=== PATIENT | male | born 1985 | race Two or more races ===

== ENCOUNTER 2020-06-30 10:20 | Emergency (ER) | payer OTHER ==
[2020-06-30 10:39] VITALS: BP 140/89
[2020-06-30] MEDS ORDERED: KETOROLAC TROMETHAMINE 60 MG/2 ML SDV IM ONE (10:48)
[2020-06-30] MEDS ORDERED: METHYLPREDNISOLONE INJ 125 MG/2 ML SDV IM ONE (10:49)
[2020-06-30] MEDS ORDERED: CYCLOBENZAPRINE HCL 10 MG TABLET PO ONE (10:49)
--- NOTE | 2020-06-30 10:57 | ER Document Report ---
HPI - HPI Patient complains to provider of: back pain Time Seen by Provider: 06/30/20 10:43 Context: 34-year-old male past medical history significant for GERD presents to the emergency room with sudden onset of low back pain. Patient states [place]. States he went to get out of the whole walk across the street to bend over and scrap picker some piping when he had sudden onset of low back pain that radiated into his legs. Patient states he fell forward landing on his knees. Did not injure his back during the fall. States he was able to ambulate with assistance and was brought to the emergency room by coworkers. States he does have a history of herniated disks from L3-L5 from several years ago. Not currently taking any medications for his back. Denies any loss of control over his bowels or bladder. No saddle anesthesia. No red flags. Associated Symptoms: None Exacerbated by: Movement Relieved by: Denies Similar symptoms previously: Yes - History of previous back injury several years ago while in the . Recently seen / treated by doctor: No - ROS Systems Reviewed and Negative: Yes All other systems reviewed and negative - CONSTITUTIONAL Constitutional: DENIES: Fever - NEURO Neurology: DENIES: Weakness - GASTROINTESTINAL Gastrointestinal: DENIES: Abdominal Pain, Nausea, Patient vomiting, Diarrhea - URINARY Urinary: DENIES: Dysuria, Urgency, Frequency - MUSCULOSKELETAL Musculoskeletal: REPORTS: Back Pain - DERM Skin Color: Normal Skin Problems: None Past Medical History - General Information source: Patient - Social History Smoking Status: Current Every Day Smoker - Vape Frequency of alcohol use: None Drug Abuse: None Family History: Reviewed & Not Pertinent Vertical Provider Document - CONSTITUTIONAL Agree With Documented VS: Yes Exam Limitations: No Limitations General Appearance: Moderate Distress - INFECTION CONTROL TRAVEL OUTSIDE OF THE [place] IN LAST 30 DAYS: No - HEENT HEENT: Atraumatic, Normocephalic - NECK Neck: Normal Inspection, Supple, Thyroid Normal - RESPIRATORY Respiratory: Breath Sounds Normal, No Respiratory Distress - CARDIOVASCULAR Cardiovascular: Regular Rate, Regular Rhythm - BACK Back: Abnormal Inspection - Tenderness on palpation from L2-L5. Tenderness over the left sciatic notch. Positive straight leg raising bilaterally at 20 degrees. No step-offs. No obvious deformities noted. Lower lumbar muscle spasms are palpated.. negative: CVA Tenderness-Right, CVA Tenderness-Left - MUSCULOSKELETAL/EXTREMETIES Musculoskeletal/Extremeties: FROM, Non-Tender - NEURO Level of Consciousness: Awake, Alert, Appropriate Motor/Sensory: No Motor Deficit, No Sensory Deficit Deep Tendon Reflexes: 2+ - Bilateral patellas Notes: Gait not tested secondary to pain - DERM Integumentary: Warm, Dry, No Rash Course - Re-evaluation Re-evalutation: 06/30/20 11:45 Patient is resting comfortably with decreased pain. He is able to ambulate with a steady gait. Negative straight leg raising bilaterally. He is neurovascularly intact. Reviewed x-ray results with patient. 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 He was counseled to continue with his current medications as prescribed. Patient was counseled that he will need to follow-up outpatient through his employer for Worker's Comp. referral. All medications as prescribed. Discussed elevated blood pressure and need to follow-up outpatient with his primary care physician for his elevated blood pressure. Patient was given strict return to the emergency room guidelines. Return for any new or worsening symptoms. All questions were answered. Patient verbalized understanding and agrees with plan of care. 06/30/20 11:52 - Vital Signs Vital signs: Temp Pulse Resp BP Pulse Ox 98.3 F 97 20 140/89 H 97 06/30/20 10:35 06/30/20 10:35 06/30/20 10:35 06/30/20 10:35 06/30/20 10:35 - Diagnostic Test Radiology reviewed: Reports reviewed Discharge - Discharge Clinical Impression: Muscle spasm of back, Elevated blood pressure reading without diagnosis of hypertension Low back pain with left-sided sciatica Qualifiers: Chronicity: acute Back pain laterality: midline Qualified Code(s): M54.42 - Lumbago with sciatica, left side Condition: Stable Disposition: HOME, SELF-CARE Instructions: Low Back Pain ([facility]), Muscle Relaxers ([facility]), Muscle Strain ([facility]), Sciatica ([facility]) Additional Instructions: You have been seen in the Emergency Department (ED) today for back pain. Your workup and exam have not shown any acute abnormalities and you are likely suffering from muscle strain or possible problems with your discs, but there is no treatment that will fix your symptoms at this time. Please take the Flexeril, prednisone that has been prescribed as directed. You should also purchase a local lidocaine cream such as "aspercreme with lidocaine" and use per bottle instructions to the affected area. Apply heat to the area as often as you are able. Continue to keep active and avoid prolonged periods of bed rest. Please follow up with your doctor as soon as possible regarding today's ED visit and your back pain. Return to the ED for worsening back pain, fever, weakness or numbness of either leg, or if you develop either (1) an inability to urinate or have bowel movements, or (2) loss of your ability to control your bathroom functions (if you start having "accidents"), or if you develop other new symptoms that concern you.concern you. Please contact your employer for an outpatient referral to Worker's Compensation provider. Also follow-up with your primary care physician for your elevated blood pressure. Prescriptions: Prednisone [Deltasone 20 mg Tablet] See Protocol PO DAILY 9 Days #18 tablet Cyclobenzaprine HCl [Flexeril 10 mg Tablet] 10 mg PO TIDP PRN #15 tab PRN Reason: Muscle Spasms Forms: Elevated Blood Pressure, Return to Work Referrals: [facility] [[facility]] - Follow up as needed
--- NOTE | 2020-06-30 11:34 | RADIOLOGY REPORT (SQ) ---
EXAM DESCRIPTION: L SPINE WHOLE IMAGES COMPLETED DATE/TIME: 06/30/2020 11:20 am REASON FOR STUDY: back injury COMPARISON: MRI of the lumbar spine from 03/19/2020. NUMBER OF VIEWS: Five views. TECHNIQUE: AP, lateral, sacral and oblique views of the lumbar spine were obtained. LIMITATIONS: None. FINDINGS: MINERALIZATION: Normal. SEGMENTATION: There are 5 lumbar-type vertebral bodies. There is no transitional segment at the lumb osacral junction. ALIGNMENT: Normal. VERTEBRAE: Preserved. DISCS: Preserved. 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 There is no pars interarti cularis defect. HARDWARE: None in the spine. PARASPINAL SOFT TISSUES: No acute gross abnormality. PELVIS: Intact. OTHER: No other findings. IMPRESSION: No fracture or malalignment of the lumbar spine. TECHNICAL DOCUMENTATION: JOB ID: [id number] [employer]- All Rights Reserved Reading location - IP/workstation name: [email or web address]
== END 2020-06-30 11:50 | disposition home or self-care (01) ==
LOC: ER 10:20
DX: M54.42 Lumbago with sciatica, left side (principal); X50.9XXA Other and unspecified overexertion or strenuous movements or postures, initial encounter; Y93.89 Activity, other specified; Y99.0 Civilian activity done for income or pay; M62.830 Muscle spasm of back; M43.26 Fusion of spine, lumbar region; R03.0 Elevated blood-pressure reading, without diagnosis of hypertension; F17.290 Nicotine dependence, other tobacco product, uncomplicated
CPT/HCPCS: 99284; 96372; 72110; J1885; J2930